=== PATIENT | female | born 1960 | race Caucasian/White ===

== ENCOUNTER 2018-03-15 10:56 | Observation (INO) | payer MEDICARE ==
[2018-03-15] MEDS ORDERED: MORPHINE 4 MG/ML SYR ONE ×2 (12:20→16:20)
[2018-03-15] MEDS ORDERED: ONDANSETRON 4 MG/2 ML VIAL ONE (12:20)
[2018-03-15] MEDS ORDERED: NA CHLORIDE 0.9% 1,000 ML ONE (12:20)
[2018-03-15 12:35] LABS: Protime INR 1.11
[2018-03-15 12:43] LABS: ALT/SGPT 149 U/L (12-78); AST/SGOT 108 U/L (15-37); Albumin 4.1 g/dL (3.4-5.0); Alkaline Phosphatase 96 U/L (45-117); BUN Blood Urea Nitrogen 9 mg/dL (7-18); Bicarbonate 28 mmol/L (21-32); Bilirubin Direct 0.3 mg/dL (0-0.2); Glucose Level 91 mg/dL (74-106); Magnesium 2.1 mg/dL (1.8-2.4); NT PRO-BNP 133 pg/mL (<125); Potassium 3.9 mmol/L (3.5-5.1); Protein, Total 7.6 g/dL (6.4-8.2); Sodium Level 138 mmol/L (136-145); Troponin I < 0.02 ng/mL (0.0-0.045)
[2018-03-15 12:55] LABS: Absolute Lymphocytes (CBC) 1.2 K/uL (0.7-4.9); Absolute Monocytes 0.3 K/uL (0.1-1.3); Absolute Neutrophil 3.7 K/uL (1.8-8.0); Basophils % 0.9 % (0-1.3); Eosinophils % 1.6 % (0-4.4); Lymphocytes % 22.5 % (15.3-44.8); MCH 35.3 pg (27.0-35.0); MCV 99.2 fL (80-100); MPV 9.4 fL (7.6-11.3); Monocytes % 6.1 % (3.3-12.3); RBC Red Blood Cell Count 4.64 M/uL (3.86-4.86)
[2018-03-15 13:12] LABS: Anisocytosis 1+; Blood Morphology Comment NOTED (NOT SEEN); Macrocytosis 1+; Platelet Estimate DECR; Polychromasia SLIGHT; Urine White Blood Cell Casts OK
--- NOTE | 2018-03-15 13:26 | RAD REPORT ---
EXAM DESCRIPTION: Lisa Single View03/15/2018 1:20 pm CLINICAL HISTORY: Chest pain COMPARISON: April 2017 FINDINGS: The lungs appear clear of acute infiltrate. The heart is normal size IMPRESSION: No acute abnormalities displayed
--- NOTE | 2018-03-15 13:45 | RAD REPORT ---
EXAM DESCRIPTION: US - Abdomen Exam Limited - 03/15/2018 1:39 pm CLINICAL HISTORY: Abdominal pain. COMPARISON: 2012 FINDINGS: The gallbladder is distended The gallbladder wall is not thickened. A gallstone is not seen. The common bile duct is upper limits normal caliber IMPRESSION: Gallbladder distention
--- NOTE | 2018-03-15 14:24 | ER ---
Nurse's Notes [facility] Name: Salome Gillespie Age: 57 yrs Sex: Female : 1960 Arrival Date: 03/15/2018 Time: 11:00 Bed 18 Private MD: None, None Diagnosis: Chest pain, unspecified;Abnormal results of liver function studies Presentation: 03/15 11:14 Presenting complaint: Patient states: Chest pain, left arm numbness, nausea, HOYT since 7 0800. States "I have Hep C and am having liver pain for 4 days.". Transition of care: patient was not received from another setting of care. Onset of symptoms was March 15, 2018 at 08:00. Risk Assessment: Do you want to hurt yourself or someone else? Patient reports no desire to harm self or others. Initial Sepsis Screen: Does the patient meet any 2 criteria? No. Patient's initial sepsis screen is negative. Does the patient have a suspected source of infection? No. Patient's initial sepsis screen is negative. Care prior to arrival: None. 11:14 Method Of Arrival: Ambulatory [facility] 11:14 Acuity: DANIEL 2 7 Triage Assessment: 11:49 General: Appears in no apparent distress. uncomfortable, Behavior is calm, cooperative, hj appropriate for age. Pain: Complains of pain in chest. Cardiovascular: Reports chest pain, Capillary refill < 3 seconds Patient's skin is warm and dry. Historical: - Allergies: 11:18 No Known Allergies; jl7 - Home Meds: 11:50 not taking meds [Active]; hj - PMHx: 11:18 Asthma; COPD; Depression; Hypertension; Hepatitis; Ulcers; jl7 - PSHx: 11:50 Bladder suspension; Hysterectomy; hj - Immunization history:: Adult Immunizations up to date. - Social history:: Smoking status: Patient uses tobacco products, smokes one pack cigarettes per day. Patient uses alcohol, on a daily basis. admits to "couple of beers" a day. Patient/guardian denies using alcohol, street drugs, The patient lives with family. - Ebola Screening: : No symptoms or risks identified at this time. - Family history:: not pertinent. - Hospitalizations: : No recent hospitalization is reported. Screenin:49 Abuse screen: Denies threats or abuse. Denies injuries from another. Nutritional hj screening: No deficits noted. Tuberculosis screening: No symptoms or risk factors identified. Fall Risk None identified. Assessment: 11:50 Pain: Pain radiates to left arm Pain began. hj 11:50 General: Appears in no apparent distress. uncomfortable, Behavior is calm, cooperative, hj appropriate for age. Pain: Complains of pain in left breast and anterior aspect of left upper chest and chest Pain radiates to left arm. Neuro: Level of Consciousness is awake, alert, obeys commands, Oriented to person, place, time, situation, Appropriate for age. Cardiovascular: Capillary refill < 3 seconds Patient's skin is warm and dry. Respiratory: Airway is patent Respiratory effort is even, unlabored, Respiratory pattern is regular, symmetrical. GI: No signs and/or symptoms were reported involving the gastrointestinal system. : No signs and/or symptoms were reported regarding the genitourinary system. EENT: No signs and/or symptoms were reported regarding the EENT system. Derm: No signs and/or symptoms reported regarding the dermatologic system. Musculoskeletal: No signs and/or symptoms reported regarding the musculoskeletal system. 12:30 Reassessment: Patient and/or family updated on plan of care and expected duration. Pain hj level reassessed. Patient is alert, oriented x 3, equal unlabored respirations, skin warm/dry/pink. 13:24 Reassessment: wheeled to US;. hj 13:47 Reassessment: Patient and/or family updated on plan of care and expected duration. Pain hj level reassessed. Patient is alert, oriented x 3, equal unlabored respirations, skin warm/dry/pink. back from CT; awaiting POC:. 14:27 Reassessment: Patient and/or family updated on plan of care and expected duration. Pain hj level reassessed. Patient is alert, oriented x 3, equal unlabored respirations, skin warm/dry/pink. for admit; awaiting room placement;. 15:53 Reassessment: Patient and/or family updated on plan of care and expected duration. Pain hj level reassessed. Patient is alert, oriented x 3, equal unlabored respirations, skin warm/dry/pink. awaiting room placement;. 16:16 Reassessment: Patient and/or family updated on plan of care and expected duration. Pain hj level reassessed. Patient is alert, oriented x 3, equal unlabored respirations, skin warm/dry/pink. awaiting room placement; medicated;. 16:21 Reassessment: pt made a phone to family member for updates;. hj 17:05 Reassessment: 4th floor sec, nurse is getting all admits on the floor; nurse will call ED nurse after 30 mins;. 17:45 Reassessment: called 4th floor; states, direct admit just came in; and nurse is in room with patient; floor nurse to call ED nurse for report, ext [phone];. 18:15 Reassessment: wheeled to MRI;. hj Vital Signs: 11:18 BP 158 / 97; Pulse 84; Resp 16 S; Temp 97.4(TE); Pulse Ox 99% on R/A; Weight 83.91 kg jl7 (R); Height 5 ft. 5 in. (165.10 cm) (R); Pain 4/10; 13:26 BP 152 / 94; Pulse 85; Resp 18; Pulse Ox 100% on R/A; hj 14:28 BP 147 / 99; Pulse 72; Resp 18; Pulse Ox 100% on R/A; hj 15:54 BP 145 / 98; Pulse 79; Resp 18; Pulse Ox 100% on R/A; hj 16:17 BP 156 / 77; Pulse 80; Resp 18; Pulse Ox 100% on R/A; hj 17:02 BP 140 / 85; Pulse 89; Resp 18; Pulse Ox 99% on R/A; hj 18:33 BP 142 / 87; Pulse 90; Resp 18; Pulse Ox 100% on R/A; hj 11:18 Body Mass Index 30.79 (83.91 kg, 165.10 cm) 7 ED Course: 11:00 Patient arrived in ED. mr 11:01 None, None is Private Physician. mr 11:15 Triage completed. jl7 11:18 Arm band placed on right wrist. jl7 11:21 Mia Hernández MD is Attending Physician. ma2 11:33 Jin Villagomez, NORI is Primary Nurse. hj 11:49 Patient has correct armband on for positive identification. Placed in gown. Bed in low hj position. Call light in reach. Side rails up X2. Adult w/ patient. deputy clerk on. Pulse ox on. NIBP on. 11:50 Patient maintains SpO2 saturation greater than 95% on room air. hj 12:03 Initial lab(s) drawn, by me, sent to lab. Inserted saline lock: 22 gauge in left hj antecubital area, using aseptic technique. Blood collected. 12:24 EKG done, by sterile preparation technician. reviewed by Mia Hernández MD. 3 13:19 X-ray completed. Portable x-ray completed in exam room. Patient tolerated procedure ls3 well. 13:34 Patient taken to ultrasound. meri 14:23 Dorota Rai MD is Hospitalizing Provider. ma2 18:06 Patient moved to MRI via wheelchair. ka 19:07 No provider procedures requiring assistance completed. Patient admitted, IV remains in hj place. intact. Administered Medications: 12:01 Drug: morphine 2 mg Route: IVP; Site: left antecubital; hj 14:32 Follow up: Response: No adverse reaction; Pain is decreased hj 12:01 Drug: Zofran 4 mg Route: IVP; Site: left antecubital; hj 12:15 Follow up: Response: No adverse reaction; Nausea is decreased hj 12:01 Drug: NS 0.9% 1000 ml Route: IV; Rate: 1 bolus; Site: left antecubital; hj 13:30 Follow up: IV Status: Completed infusion; IV Intake: 1000ml hj 16:14 Drug: morphine 2 mg Route: IVP; Site: left antecubital; iw 16:14 Follow up: Response: No adverse reaction; Pain is decreased iw 16:14 Drug: Zofran 4 mg Route: IVP; Site: left antecubital; iw 16:15 Follow up: Response: No adverse reaction; Nausea is decreased iw Intake: 13:30 IV: 1000ml; Total: 1000ml. Outcome: 14:23 Decision to Hospitalize by Provider. ma2 19:07 Admitted to Tele accompanied by nurse, via wheelchair, room 405, with chart, Report hj called to NORI Rangel 19:07 Condition: stable 19:07 Instructed on the need for admit, Demonstrated understanding of instructions. 19:08 Patient left the ED. Signatures: Elise Masters Irene, RN RN iw Jin Villagomez RN RN Elizabeth Ramsey Jacques jd Leal, Jahala, RN RN jl7 Mia Hernández MD MD ma2 Kirsten Ramírez sm3 Maryellen Pisano 3
--- NOTE | 2018-03-15 14:24 | EDPHYS ---
Physician Documentation [facility] Name: Salome Gillespie Age: 57 yrs Sex: Female : 1960 Arrival Date: 03/15/2018 Time: 11:00 Bed 18 Private MD: None, None ED Physician Mia Hernández HPI: 03/15 12:00 This 57 yrs old Female presents to ER via Ambulatory with complaints of Chest ma2 Tightness, Numbness Of Arm, Headache, Abdominal Pain, Nausea. 12:00 The patient or guardian reports chest pain that is located primarily in the anterior ma2 aspect of left upper chest and left breast. Onset: gradually, 3 hour(s) ago. The pain radiates to Associated signs and symptoms: Pertinent positives: Pertinent negatives: abdominal pain, cough, dizziness, lower extremity pain, lower extremity swelling, lightheadedness, nausea, syncope, vomiting. The chest pain is described as aching. Duration: The patient or guardian reports a single episode, that is still ongoing. Severity of pain: At its worst the pain was moderate in the emergency department the pain is unchanged. Historical: - Allergies: 11:18 No Known Allergies; jl7 - Home Meds: 11:50 not taking meds [Active]; hj - PMHx: 11:18 Asthma; COPD; Depression; Hypertension; Hepatitis; Ulcers; jl7 - PSHx: 11:50 Bladder suspension; Hysterectomy; hj - Immunization history:: Adult Immunizations up to date. - Social history:: Smoking status: Patient uses tobacco products, smokes one pack cigarettes per day. Patient uses alcohol, on a daily basis. admits to "couple of beers" a day. Patient/guardian denies using alcohol, street drugs, The patient lives with family. - Ebola Screening: : No symptoms or risks identified at this time. - Family history:: not pertinent. - Hospitalizations: : No recent hospitalization is reported. ROS: 12:00 Constitutional: Negative for fever, chills, and weight loss, Eyes: Negative for injury, ma2 pain, redness, and discharge, Neck: Negative for injury, pain, and swelling, Respiratory: Negative for shortness of breath, cough, wheezing, and pleuritic chest pain, Back: Negative for injury and pain, : Negative for injury, bleeding, discharge, and swelling, Skin: Negative for injury, rash, and discoloration, Neuro: Negative for headache, weakness, numbness, tingling, and seizure, Allergy/Immunology: Negative for hives, rash, and allergies. 12:00 Cardiovascular: Positive for chest pain, Negative for edema, orthopnea, palpitations. 12:00 Abdomen/GI: Positive for nausea, ruq abd pain, Negative for abdominal cramps, anorexia, black/tarry stool. 12:00 All other systems are negative. Exam: 12:00 Constitutional: This is a well developed, well nourished patient who is awake, alert, ma2 and in no acute distress. Head/Face: Normocephalic, atraumatic. Chest/axilla: Normal chest wall appearance and motion. Nontender with no deformity. No lesions are appreciated. Cardiovascular: Regular rate and rhythm with a normal S1 and S2. No gallops, murmurs, or rubs. Normal PMI, no JVD. No pulse deficits. Respiratory: Lungs have equal breath sounds bilaterally, clear to auscultation and percussion. No rales, rhonchi or wheezes noted. No increased work of breathing, no retractions or nasal flaring. 12:00 Abdomen/GI: Palpation: soft, moderate abdominal tenderness, in the right upper quadrant. Vital Signs: 11:18 BP 158 / 97; Pulse 84; Resp 16 S; Temp 97.4(TE); Pulse Ox 99% on R/A; Weight 83.91 kg jl7 (R); Height 5 ft. 5 in. (165.10 cm) (R); Pain 4/10; 13:26 BP 152 / 94; Pulse 85; Resp 18; Pulse Ox 100% on R/A; hj 14:28 BP 147 / 99; Pulse 72; Resp 18; Pulse Ox 100% on R/A; hj 15:54 BP 145 / 98; Pulse 79; Resp 18; Pulse Ox 100% on R/A; hj 16:17 BP 156 / 77; Pulse 80; Resp 18; Pulse Ox 100% on R/A; hj 17:02 BP 140 / 85; Pulse 89; Resp 18; Pulse Ox 99% on R/A; hj 18:33 BP 142 / 87; Pulse 90; Resp 18; Pulse Ox 100% on R/A; hj 11:18 Body Mass Index 30.79 (83.91 kg, 165.10 cm) jl7 MDM: 11:21 Patient medically screened. ma2 12:00 Differential diagnosis: acute pericarditis, coronary artery disease congestive heart ma2 failure cholecystitis, Cholelithiasis acute over chronic hepatitis. HEART Score: History: Highly Suspicious (2), ECG: Normal (0), Age: > 45 and < 65 years (1), Risk Factors: > or = 3 Risk factors for atherosclerotic disease (2), Total Score =. 14:22 The patient was given aspirin in the Emergency Department. Data reviewed: vital signs, ma2 nurses notes. Counseling: I had a detailed discussion with the patient and/or guardian regarding: the historical points, exam findings, and any diagnostic results supporting the discharge/admit diagnosis, the presence of at least one elevated blood pressure reading (>120/80) during this emergency department visit, the need for further work-up and treatment in the hospital. 03/15 11:59 Order name: Basic Metabolic Panel [facility] 03/15 11:59 Order name: CBC with Diff [facility] 03/15 11:59 Order name: LFT's [facility] 03/15 11:59 Order name: Magnesium [facility] 03/15 11:59 Order name: NT PRO-BNP [facility] 03/15 11:59 Order name: PT-INR [facility] 03/15 11:59 Order name: Troponin (emerg Dept Use Only) [facility] 03/15 12:40 Order name: Protime (+INR); Complete Time: 13:36 [facility] 03/15 12:44 Order name: Basic Metabolic Panel; Complete Time: 13:36 [facility] 03/15 12:44 Order name: Liver (Hepatic) Function; Complete Time: 13:36 [facility] 03/15 12:44 Order name: Troponin I; Complete Time: 13:36 [facility] 03/15 12:44 Order name: NT PRO-BNP; Complete Time: 13:36 [facility] 03/15 12:44 Order name: Magnesium; Complete Time: 13:36 [facility] 03/15 12:59 Order name: CBC with Automated Diff; Complete Time: 13:36 [facility] 03/15 11:59 Order name: XRAY Chest (1 view) [facility] 03/15 11:59 Order name: EKG; Complete Time: 13:03 [facility] 03/15 11:59 Order name: Cardiac monitoring; Complete Time: 12:02 ma2 03/15 11:59 Order name: EKG - Nurse/Tech; Complete Time: 12:02 ma2 03/15 11:59 Order name: IV Saline Lock; Complete Time: 12:02 ma2 03/15 11:59 Order name: Labs collected and sent; Complete Time: 12:02 ma2 03/15 11:59 Order name: O2 Per Protocol; Complete Time: 12:02 ma2 03/15 11:59 Order name: US Abdomen Limited ma2 03/15 13:13 Order name: CBC Smear Scan; Complete Time: 13:36 [facility] 03/15 13:27 Order name: RAD; Complete Time: 13:36 ED[facility] 03/15 13:46 Order name: US; Complete Time: 14:44 [facility] 03/15 11:59 Order name: O2 Sat Monitoring; Complete Time: 12:02 ma2 Administered Medications: 12:01 Drug: morphine 2 mg Route: IVP; Site: left antecubital; hj 14:32 Follow up: Response: No adverse reaction; Pain is decreased hj 12:01 Drug: Zofran 4 mg Route: IVP; Site: left antecubital; hj 12:15 Follow up: Response: No adverse reaction; Nausea is decreased hj 12:01 Drug: NS 0.9% 1000 ml Route: IV; Rate: 1 bolus; Site: left antecubital; hj 13:30 Follow up: IV Status: Completed infusion; IV Intake: 1000ml hj 16:14 Drug: morphine 2 mg Route: IVP; Site: left antecubital; iw 16:14 Follow up: Response: No adverse reaction; Pain is decreased iw 16:14 Drug: Zofran 4 mg Route: IVP; Site: left antecubital; iw 16:15 Follow up: Response: No adverse reaction; Nausea is decreased iw Disposition: 03/15/18 14:23 Hospitalization ordered by Dorota Rai for Observation. Preliminary diagnosis are Chest pain, unspecified, Abnormal results of liver function studies. - Bed requested for Telemetry/MedSurg (observation). - Status is Observation. hj - Condition is Stable. - Problem is new. - Symptoms are unchanged. UTI on Admission? No Signatures: Dispatcher [employer] EDCarlene Hooker RN RN Jin Villagomez RN RN Migdalia Cartwright, RN RN jl7 Barbara Cat, RN RN df Mia Hernández MD MD ma2 Corrections: (The following items were deleted from the chart) 14:46 14:23 Hospitalization Ordered by Dorota Rai MD for Observation. Preliminary ma2 diagnosis is Chest pain, unspecified. Bed requested for Telemetry/MedSurg (observation). Status is Observation. Condition is Stable. Problem is new. Symptoms are unchanged. UTI on Admission? No. ma2 14:46 14:46 03/15/2018 14:23 Hospitalization Ordered by Dorota Rai MD for Observation. ma2 Preliminary diagnosis is Chest pain, unspecified; Abnormal results of liver function studies. Bed requested for Telemetry/MedSurg (observation). Status is Observation. Condition is Stable. Problem is new. Symptoms are unchanged. UTI on Admission? No. ma2 17:01 14:46 03/15/2018 14:23 Hospitalization Ordered by Dorota Rai MD for Observation. df Preliminary diagnosis is Chest pain, unspecified; Abnormal results of liver function studies. Bed requested for Telemetry/MedSurg (observation). Status is Observation. Condition is Stable. Problem is new. Symptoms are unchanged. UTI on Admission? No. ma2 19:08 17:01 03/15/2018 14:23 Hospitalization Ordered by Dorota Rai MD for Observation. hj Preliminary diagnosis is Chest pain, unspecified; Abnormal results of liver function studies. Bed requested for Telemetry/MedSurg (observation). Status is Observation. Condition is Stable. Problem is new. Symptoms are unchanged. UTI on Admission? No. df
[2018-03-15] MEDS ORDERED: ACETAMINOPHEN 500 MG TAB PO PRN (15:27)
--- NOTE | 2018-03-15 18:24 | P.HP ---
Certification for Inpatient Patient admitted to: Observation With expected LOS: <2 Midnights Patient will require the following post-hospital care: None Practitioner: I am a practitioner with admitting privileges, knowledge of patient current condition, hospital course, and medical plan of care. Services: Services provided to patient in accordance with Admission requirements found in Title 42 Section 412.3 of the Code of Federal Regulations Patient History Date of Service: 03/16/18 History of Present Illness: Mrs. Gillespie is 57. She has never had any heart disease before. She came to the hospital because her right upper quadrant was hurting. It radiates to her left shoulder sometimes. Mrs. Gillespie does not have diabetes. She has hypertension, obstructive lung disease, and is a regular cigarette smoker, and she seems to have mild dementia as well. She takes memantine, lisinopril, albuterol, budesonide with formoterol, Protonix, and tizanidine. She has no allergies. She was not having any exertional intolerance, was not short of breath. No nausea, vomiting, or sweating. Being in the hospital, cardiac enzymes are normal as well as EKGs are normal. She has had some studies on her gallbladder. It is distended, and an MR cholangiopancreatogram does not reveal stones, but it does not explain why the patient's gallbladder is so distended. Allergies No Known Allergies Allergy (Verified 03/15/18 19:12) Home Medications: Albuterol Sulfate [Proair Hfa] 8.5 gm IH PRN PRN 04/19/13 Budesonide/Formoterol Fumarate [Symbicort 160-4.5 Mcg Inhaler] 6 gm IH BID PRN 04/19/13 Lisinopril [Prinivil*] 20 mg PO BID 04/19/13 Memantine HCl [Namenda*] 10 mg PO DAILY 04/19/13 Pantoprazole [Protonix Tab*] 40 mg PO DAILY #30 tab 04/23/13 Tizanidine HCl 1 tab PO BEDTIME 03/15/18 - Past Medical/Surgical History Diabetic: No -: alzhiemrs -: htn -: copd -: hep c -: mesh sling for bladder -: hysterectomy - Family History Mother Notes: Cancer: CCL, Dementia, alzhiemrs Father Notes: hun[place] disease - Social History Alcohol use: Yes CD- Drugs: No Caffeine use: Yes Review of Systems 10-point ROS is otherwise unremarkable Physical Examination - Physical Exam General: Alert, In no apparent distress HEENT: Atraumatic, PERRLA, Mucous membr. moist/pink, EOMI, Sclerae nonicteric Neck: Supple, 2+ carotid pulse no bruit, No LAD, Without JVD or thyroid abnormality Respiratory: Clear to auscultation bilaterally, Normal air movement Cardiovascular: Regular rate/rhythm, Normal S1 S2 Gastrointestinal: Normal bowel sounds, No tenderness Musculoskeletal: No tenderness Integumentary: No rashes Neurological: Normal gait, Normal speech, Normal strength at 5/5 x4 extr, Normal tone, Normal affect Lymphatics: No axilla or inguinal lymphadenopathy - Studies Laboratory Data (last 24 hrs) 03/15/18 12:00: PT 13.1 H, INR 1.11 03/15/18 12:00: WBC 5.3, Hgb 16.4 H, Hct 46.0 H, Plt Count 62 L 03/15/18 12:00: Sodium 138, Potassium 3.9, BUN 9, Creatinine 0.90, Glucose 91, Magnesium 2.1, Total Bilirubin 1.0, AST 108 H, ALT 149 H, Alkaline Phosphatase 96, Troponin I < 0.02 03/15/18 11:59: PT Cancelled, INR Cancelled 03/15/18 11:59: WBC Cancelled, Hgb Cancelled, Hct Cancelled, Plt Count Cancelled 03/15/18 11:59: Sodium Cancelled, Potassium Cancelled, BUN Cancelled, Creatinine Cancelled, Glucose Cancelled, Magnesium Cancelled, Total Bilirubin Cancelled, AST Cancelled, ALT Cancelled, Alkaline Phosphatase Cancelled Assessment and Plan - Problems (Diagnosis) (1) RUQ pain Onset Date: 03/16/18 Status: Acute (2) Elevated transaminase level Onset Date: 03/16/18 Status: Acute (3) GALLBLADDER DISTENTION Onset Date: 03/16/18 Status: Acute (4) Liver cirrhosis Onset Date: 03/16/18 Status: Chronic (5) Chest pain Onset Date: 03/16/18 Status: Acute (6) HTN (hypertension) Onset Date: 03/16/18 Status: Chronic Qualifiers: Hypertension type: essential hypertension Qualified Code(s): I10 - Essential (primary) hypertension - Plan Patient will be admitted to the medical-surgical floor for her right upper quadrant pain. Will go ahead and get an MRCP done at this time to evaluate for gallbladder distention. Abdominal ultrasound was negative for acute cholecystitis. If the MRCP is positive for CBD stones or acute cholecystitis will go ahead and consult general surgery at that time. Patient will be admitted to the hospital for further care. Will start on IV antibiotics at this time as well. Patient also complained of having some mid sternal chest pain which was radiating to her left shoulder echocardiogram will be ordered and cardiology will be consulted and troponin x2 were drawn here in the hospital as well. Discharge Plan: Home Plan to discharge in: 48 Hours - Advance Directives Does patient have a Living Will: No Does patient have a Durable POA for Healthcare: No - Code Status/Comfort Care Code Status Assessed: Yes Critical Care: No
--- NOTE | 2018-03-15 19:23 | RAD REPORT ---
EXAM DESCRIPTION: [id number]/20/2018 6:47 pm CLINICAL HISTORY: Abdominal pain COMPARISON: 2012 TECHNIQUE: Magnetic resonance cholangiogram was performed. 3D MIPS reconstruction performed FINDINGS: The gallbladder is moderately distended. Gallbladder wall is not thickened. A filling defe ct within the gallbladder is not seen. . The biliary tree is normal caliber without a filling defect. Pancreatic duct appears normal IMPRESSION: Gallbladder distention. Nuclear medicine HIDA scan is recommended
[2018-03-15] MEDS: NA CHLORIDE 0.9% 1,000 ML IV SCH (20:00)
[2018-03-15] MEDS: ONDANSETRON 4 MG/2 ML VIAL IV PRN (20:13)
[2018-03-15] MEDS: MORPHINE 4 MG/ML SYR IV PRN (22:58)
[2018-03-15] MEDS: PHENAZOPYRIDINE 100MG TAB PO PRN (23:06)
[2018-03-15 23:32] LABS: Urine Appearance CLOUDY; Urine Bilirubin NEGATIVE (NEG); Urine Blood NEGATIVE (NEG); Urine Color YELLOW; Urine Glucose NEGATIVE (NEG); Urine Protein NEGATIVE (NEG); Urine Specific Gravity 1.015 (1.005-1.030); Urine Urobilinogen 0.2 mg/dL (0.2-1.0); Urine pH 5.5 (5.0-7.0)
[2018-03-15 23:39] VITALS: O2SAT 98; BMI 30.7
[2018-03-16 00:42] LABS: Urine Bacteria >50 /HPF (<20); Urine Culture Reflex Order REFLEXED; Urine RBC NONE SEEN /HPF (NONE SEEN)
[2018-03-16] MEDS: NA CHLORIDE 0.9% 1,000 ML IV SCH (01:19)
[2018-03-16] MEDS: ONDANSETRON 4 MG/2 ML VIAL IV PRN ×2 (02:29→07:29)
[2018-03-16] MEDS: MORPHINE 4 MG/ML SYR IV PRN ×2 (02:29→07:16)
[2018-03-16 04:52] LABS: Absolute Lymphocytes (CBC) 0.9 K/uL (0.7-4.9); Absolute Monocytes 0.3 K/uL (0.1-1.3); Absolute Neutrophil 2.2 K/uL (1.8-8.0); Basophils % 0.7 % (0-1.3); Eosinophils % 2.1 % (0-4.4); Hematocrit 38.8 % (36.0-45.0); Lymphocytes % 25.9 % (15.3-44.8); MCH 35.4 pg (27.0-35.0); MCV 100.2 fL (80-100); MPV 8.5 fL (7.6-11.3); Monocytes % 9.8 % (3.3-12.3); RBC Red Blood Cell Count 3.88 M/uL (3.86-4.86)
[2018-03-16 05:09] LABS: Albumin 3.4 g/dL (3.4-5.0); Potassium 4.4 mmol/L (3.5-5.1); Protein, Total 6.3 g/dL (6.4-8.2)
--- NOTE | 2018-03-16 05:53 | EKG ---
Test Date: 2018-03-15 Test Time: 11:56:00 Nutrition Services Associate: RAJINDER MEASUREMENT RESULTS: Intervals: Rate: 81 MS: 132 QRSD: 76 QT: 390 QTc: 453 [place]: P: 72 MS: 132 QRS: 9 T: 64 INTERPRETIVE STATEMENTS: Normal sinus rhythm Normal ECG Compared to ECG 06/17/2010 01:50:27 No significant changes Electronically Signed On 03-16-18 05:52:49 METALLOGRAPHIC TECHNICIAN by Derek Steen
[2018-03-16] MEDS ORDERED: INFLUENZA VACCINE (for 3y+) 0.5 ML DOSE IMVAC ONE (07:00)
[2018-03-16] MEDS: PHENAZOPYRIDINE 100MG TAB PO PRN (07:16)
[2018-03-16 08:46] VITALS: BP 138/78; TEMP 98.2
[2018-03-16] MEDS ORDERED: Budesonide/Formoterol Fumarate (Symbicort) 160-4.5 Mcg Inhaler IH PRN (09:15)
--- NOTE | 2018-03-16 12:46 | CON ---
History Of Present Illness: Mrs. Gillespie is 57. She has never had any heart disease before. She ca me to the hospital because her right upper quadrant was hurting. It radiates to her left shoulder so metimes. Mrs. Gillespie does not have diabetes. She has hypertension, obstructive lung disease, and i s a regular cigarette smoker, and she seems to have mild dementia as well. She takes memantine, dwayne nopril, albuterol, budesonide with formoterol, Protonix, and tizanidine. She has no allergies. She was not having any exertional intolerance, was not short of breath. No nausea, vomiting, or sweating . Being in the hospital, cardiac enzymes are normal as well as EKGs are normal. She has had some st udies on her gallbladder. It is distended, and an MR cholangiopancreatogram does not reveal stones, but it does not explain why the patient's gallbladder is so distended. Physical Examination: Vital signs: Five feet and 5 inches, 185 pounds. Lungs: Reveal some mild wheezing. It mostly clears if she coughs. She appears to have some mild br onchitis present. There are not pulmonary crackles suggestive of pulmonary edema. Heart: Within normal limits. There is no carotid bruit. Extremities: Distal pulses are diminished, but palpable. No cyanosis or clubbing. There is discolo ration of the skin in her shins probably from chronic venous stasis. Diagnostic Studies: A chest x-ray is within normal limits. Impression: The patient's pain is not cardiac. I think if the decision is made she needs to have th e gallbladder removed, I think her heart is healthy enough to do that. I do not think we need to do a stress test in this case because the chest pain is so very atypical. Thank you very much for your kind referral of Mrs. Gillespie. I will follow her with you. JESSICA Voice ID: [id number] Report ID: [id number]
--- NOTE | 2018-03-16 16:34 | P.SSS ---
Patient History Date of Service: 03/16/18 History of Present Illness: Mrs. Gillespie is 57. She has never had any heart disease before. She came to the hospital because her right upper quadrant was hurting. It radiates to her left shoulder sometimes. Mrs. Gillespie does not have diabetes. She has hypertension, obstructive lung disease, and is a regular cigarette smoker, and she seems to have mild dementia as well. She takes memantine, lisinopril, albuterol, budesonide with formoterol, Protonix, and tizanidine. She has no allergies. She was not having any exertional intolerance, was not short of breath. No nausea, vomiting, or sweating. Being in the hospital, cardiac enzymes are normal as well as EKGs are normal. She has had some studies on her gallbladder. It is distended, and an MR cholangiopancreatogram does not reveal stones, but it does not explain why the patient's gallbladder is so distended. Allergies No Known Allergies Allergy (Verified 03/15/18 19:12) Home Medications: Albuterol Sulfate [Proair Hfa] 8.5 gm IH PRN PRN 04/19/13 Budesonide/Formoterol Fumarate [Symbicort 160-4.5 Mcg Inhaler] 6 gm IH BID PRN 04/19/13 Lisinopril [Prinivil*] 20 mg PO BID 04/19/13 Memantine HCl [Namenda*] 10 mg PO DAILY 04/19/13 Pantoprazole [Protonix Tab*] 40 mg PO DAILY #30 tab 04/23/13 Tizanidine HCl 1 tab PO BEDTIME 03/15/18 - Past Medical/Surgical History Has patient received pneumonia vaccine in the past: No Diabetic: No -: alzhiemrs -: htn -: copd -: hep c -: asthma -: mesh sling for bladder -: hysterectomy -: - Family History Mother Notes: Cancer: CCL, Dementia, alzhiemrs Father Notes: [place] disease - Social History Smoking Status: Current every day smoker Alcohol use: Yes CD- Drugs: No Caffeine use: Yes Place of Residence: Home Review of Systems 10-point ROS is otherwise unremarkable Physical Examination - Vital Signs Temperature: 98.2 F Blood Pressure: 138/78 Pulse: 69 Respirations: 20 Pulse Ox (%): 94 - Physical Exam General: Alert, In no apparent distress HEENT: Atraumatic, PERRLA, Mucous membr. moist/pink, EOMI, Sclerae nonicteric Neck: Supple, 2+ carotid pulse no bruit, No LAD, Without JVD or thyroid abnormality Respiratory: Clear to auscultation bilaterally, Normal air movement Cardiovascular: Regular rate/rhythm, Normal S1 S2 Gastrointestinal: Normal bowel sounds, No tenderness Musculoskeletal: No tenderness Integumentary: No rashes Neurological: Normal gait, Normal speech, Normal strength at 5/5 x4 extr, Normal tone, Normal affect Lymphatics: No axilla or inguinal lymphadenopathy - Studies Laboratory Data (last 24 hrs) 03/15/18 11:59: PT Cancelled, INR Cancelled 03/15/18 11:59: WBC Cancelled, Hgb Cancelled, Hct Cancelled, Plt Count Cancelled 03/15/18 11:59: Sodium Cancelled, Potassium Cancelled, BUN Cancelled, Creatinine Cancelled, Glucose Cancelled, Magnesium Cancelled, Total Bilirubin Cancelled, AST Cancelled, ALT Cancelled, Alkaline Phosphatase Cancelled - Diagnosis (Problem(s)) (1) RUQ pain Onset Date: 03/16/18 Status: Acute (2) Elevated transaminase level Onset Date: 03/16/18 Status: Acute (3) GALLBLADDER DISTENTION Onset Date: 03/16/18 Status: Acute (4) Liver cirrhosis Onset Date: 03/16/18 Status: Chronic (5) Chest pain Onset Date: 03/16/18 Status: Acute (6) HTN (hypertension) Onset Date: 03/16/18 Status: Chronic Qualifiers: Hypertension type: essential hypertension Qualified Code(s): I10 - Essential (primary) hypertension Treatment Summary: Overall during the hospital stay patient remained stable Patient had MRCP done here in the hospital which was consistent with gallbladder distention HIDA scan was recommended. Patient left the hospital fall against medical advise the forgetting a HIDA scan. Patient was seen here by the porcelain buildup assistant and an echocardiogram was done here in the hospital which was within normal limits. Patient was educated extensively on the disease process and end temp was made for patient to stay here however patient stated that she needs to wait and was thus given paperwork for against medical advise which she signed and left the hospital. - Disposition Disposition: AMA-LEFT AGAINST MEDICAL ADVIC
[2018-03-16] MEDS ORDERED: LISINOPRIL 20 MG TAB PO SCH (21:00)
[2018-03-17] MEDS ORDERED: PANTOPRAZOLE 40MG TABLET PO SCH (09:00)
[2018-03-17] MEDS ORDERED: MEMANTINE HCL 10 MG TABLET PO SCH (09:00)
== END 2018-03-16 09:00 | disposition left against medical advice (07) ==
LOC: ER 10:56 → ERHOLD 14:31 → 4TH 18:21
PROVIDERS: ADMIT Family Medicine; ATTEND Family Medicine
DX: R10.11 Right upper quadrant pain (principal); I10 Essential (primary) hypertension; G30.9 Alzheimer's disease, unspecified; F02.80 Dementia in other diseases classified elsewhere, unspecified severity, without behavioral disturbance, psychotic disturbance, mood disturbance, and anxiety; K74.60 Unspecified cirrhosis of liver; K82.8 Other specified diseases of gallbladder; Z86.19 Personal history of other infectious and parasitic diseases
CPT/HCPCS: 36415; 71045; 74181; 76705; 80048; 80053; 80076; 81001; 83735; 83880; 84484 ×3; 85025 ×2; 85610; 87086; 87088; 93005; 96361; 96374; 96375; 99285; J2405 ×5; J7030 ×3; G0378